=== PATIENT | female | born 1990 | race American Indian/Alaskan Native ===

== ENCOUNTER 2016-07-22 23:41 | Emergency (ER) | payer MEDICAID ==
[2016-07-22 23:51] VITALS: BP 114/74
--- NOTE | 2016-07-23 01:50 | Emergency Department Report ---
HPI - General Chief Complaint: Extremity Injury, Lower Time Seen by Provider: 07/23/16 01:44 - HPI HPI: 25-year-old -[place] female comes in for complaint of playing with her dog and injured her left pinky fingernail and has a bruise and scratch to her right lower leg. Patient reports that this is her animal. Patient reports that the dog has all his vaccines up-to-date. She denies any nausea vomiting no fever no chills she does report that her right lower leg graham area is swollen a little bit with a scratch. Patient reports she has a past medical history of mood swings and she is on Zoloft. ED Past Medical Hx - Past Medical History Previous Medical History?: No - Surgical History Past Surgical History?: No - Social History Smoking Status: Never Smoker Substance Use Type: None ED Review of Systems ROS: Stated complaint: LT HAND FIFTH FINGER INJURY/RT LEG PAIN Other details as noted in HPI Constitutional: denies: chills, fever Eyes: denies: eye pain, eye discharge, vision change ENT: denies: ear pain, throat pain Skin: change in color (bruise with swelling on her right lower leg graham), change in hair/nails (left pinky nail is hanging off these to be taken off), other (scratch) Physical Exam - Physical Exam Vital Signs: Vital Signs 07/22/16 23:48 Temperature 99.2 F Pulse Rate 81 Respiratory 20 Rate Blood Pressure 114/74 [Right] O2 Sat by Pulse 98 Oximetry ED Course Vital Signs 07/22/16 23:48 Temperature 99.2 F Pulse Rate 81 Respiratory 20 Rate Blood Pressure 114/74 [Right] O2 Sat by Pulse 98 Oximetry ED Medical Decision Making - Medical Decision Making Patient evaluated by this provider fast track. I was able to remove the nail by cutting. Scratch to her right lower graham was cleaned with Betadine normal saline and gauze with tape placed on. Discussed with patient that she needs to keep it clean and dry look for any signs of infection such as purulent discharge redness around the area. Critical care attestation.: If time is entered above; I have spent that time in minutes in the direct care of this critically ill patient, excluding procedure time. ED Disposition Clinical Impression: Scratch of lower leg, Hangnail Disposition: DISCHARGED TO HOME OR SELFCARE Is pt being admited?: No Does the pt Need Aspirin: No Condition: Stable Instructions: Abrasion (ED) Additional Instructions: Recommend you to soak left pinky and warm salt water. At least once a day for the next 2-3 days. Also recommend. Keep your right lower leg abrasion clean and dry. Referrals: PRIMARY CARE, [Primary Care Provider] - 3-5 Days VERONIKA MILLAN MD [Staff Physician] - 3-5 Days
== END 2016-07-23 02:15 | disposition home or self-care (01) ==
LOC: ED 23:41
DX: S60.417A Abrasion of left little finger, initial encounter (principal); X58.XXXA Exposure to other specified factors, initial encounter; Y93.89 Activity, other specified; Y99.9 Unspecified external cause status; Y92.89 Other specified places as the place of occurrence of the external cause
CPT/HCPCS: 99282

== ENCOUNTER 2017-11-22 12:01 | Emergency (ER) | payer SELFPAY ==
[2017-11-22 12:11] VITALS: BP 111/59
--- NOTE | 2017-11-22 16:45 | Emergency Department Report ---
Upper Extremity - HPI Chief Complaint: Wound/Laceration Stated Complaint: RT HAND INJURY Time Seen by Provider: 11/22/17 16:38 Upper Extremity: Right Hand (laceration and pain after punching a door) Occurred When: Today Mechanism: Other (patient reported that she punched a door) Severity: moderate (6/10 and achy, throbbing) Symptoms: Yes Pain with Movement (right hand), Yes Limited Range of Movement ( pain with opening and closing right hand), Yes Swelling (right hand), Yes Laceration or Abrasion (right hand), No Deformity, No Numbness, No Weakness, No Bruising/Ecchymosis Other History: This 27-year-old female here report that she punched a door this morning and she is having right hand pain at her for fourth and fifth finger. She reports swelling and also reports that she has a cut and a bruise in her right hand. Tetanus vaccine is up-to-date. Pain is 6/10 achy and throbbing worse with movement better with rest. Denies taking any medication. She says she put a dressing over site was bleeding and came to hospital soon after. ED Review of Systems ROS: Stated complaint: RT HAND INJURY Other details as noted in HPI Constitutional: denies: chills, fever Respiratory: denies: cough, shortness of breath, SOB with exertion, wheezing Cardiovascular: denies: chest pain, palpitations, edema, syncope Gastrointestinal: denies: nausea, vomiting Musculoskeletal: joint swelling, arthralgia. denies: back pain, myalgia Skin: rash, other (laceration and bruising to right hand). denies: lesions Neurological: denies: headache, weakness, numbness, paresthesias, abnormal gait , vertigo ED Past Medical Hx - Past Medical History Previous Medical History?: No - Surgical History Past Surgical History?: No - Family History Family history: no significant - Social History Smoking Status: Current Every Day Smoker Substance Use Type: Alcohol - Medications Home Medications: Home Medications Medication Instructions Recorded Confirmed Last Taken Type Ibuprofen [Motrin] 600 mg PO Q8H PRN #12 tablet 11/22/17 Unknown Rx cephALEXin [Keflex] 500 mg PO Q8HR 7 Days #21 cap 11/22/17 Unknown Rx Upper Extremity Exam - Exam General: Vital signs noted. No distress. Alert and acting appropriately. This is a 27-year-old female well-nourished well-developed in no acute distress. Head and Torso: No HEENT Abnormality, No Neck Tenderness, No Chest/Lungs Abnormality, No Abdominal Tenderness, No Back Tenderness Shoulder Exam: Yes Normal Range of Motion in Shoulder, No Shoulder Tenderness, No Clavicle Tenderness, No Shoulder Deformity, No AC Joint Tenderness Arm Exam: No Arm/Humerus Tenderness, No Arm Deformity Elbow: Yes Normal Range of Motion in Elbow, No Elbow Tenderness, No Elbow Deformity Forearm: No Forearm Tenderness, No Forearm Deformity, No Pain with Pronation, No Pain with Supination Wrist: Yes Normal ROM in Wrist, No Wrist Tenderness, No Wrist Deformity, No Snuffbox Tenderness, No Pain with Axial Thumb Compression Hand: Yes Hand Tenderness (between third, fourth and fifth metacarpal bone area. ), Yes Digit Tenderness (proximal fourth phalanx, dorsum), Yes Normal ROM in Digit(s) (full range of motion in all extremities but patient with pain with movement of right hand especially fourth phalanx.), Yes Digit(s) Deformity ( proximal fourth phalanx with mild swelling), No Hand Deformity, No Tendon Dysfunction CMS Exam: Yes Broken Skin (2 cm laceration, linear, superficial between third and fourth metacarpal bone, dorsum of right hand), Yes Normal Distal Pulses (, cyanosis or edema. +2 pulses all extremities and no neurovascular compromise), Yes Normal Capillary Refill (less than 2 seconds), Yes Normal Distal Sensation ( patient with good color, sensation, movement and temperature to extremities both hand.) Hand L/R Back: 1 - Patient with 2 cm, linear, superficial laceration to right dorsum of hand. Minimal bleeding. Tendon palpates without any signs of infection. ED Course Vital Signs 11/22/17 12:07 Temperature 98.2 F Pulse Rate 66 Respiratory 18 Rate Blood Pressure 111/59 O2 Sat by Pulse 99 Oximetry - Reevaluation(s) Reevaluation #1: 11/22/17 18:37 Patient received Keflex 500 mg to prevent infection, ibuprofen 800 mg by mouth for pain and posterior 0.5 mL injection to update tetanus. No adverse reaction. - Laceration /Wound Repair Right Dorsal Hand Wound Location: upper extremity (right hand between third and fourth metacarpal bone area.) Wound's Depth, Shape: superficial, linear Wound Explored: no foreign body removed Irrigated w/ Saline (ccs): 100 Betadine Prep?: Yes Anesthesia: 1% Lidocaine Volume Anesthetic (ccs): 2 Wound Debrided: moderate Wound Repaired With: sutures Suture Size/Type: 4:0 (Ethilon) Number of Sutures: 5 Layer Closure?: No Sterile Dressing Applied?: Yes - Orthopedic Splinting/Casting Injury #1 Side: right Upper Extremity Injury Location: finger Upper Extremity Immobilizer: aluminum form splint Additional Comments: Patient with good color, sensation and movement in temperature to fingers of right hand status post metal finger splint placed. ED Medical Decision Making - Radiology Data Radiology results: report reviewed Findings [facility] [address] [place] [address] XRay Report Signed Patient: MARGUERITE MARY MR#: [id number] : 1990 Acct:[id number] Age/Sex: 27 / F ADM Date: 11/22/17 Loc: ED Attending Dr: Ordering Physician: DONTRELL CASTILLO Date of Service: 11/22/17 Procedure(s): XR hand 3+V RT Accession Number(s): [id number] cc: DONTRELL CASTILLO Fluoro Time In Minutes: FINAL REPORT EXAM: XR HAND 3+V RT HISTORY: punched hard object with rt hand now with pain TECHNIQUE: Frontal, lateral, oblique views right hand Comparison: None FINDINGS: There is the appearance of a minimally displaced fracture of the proximal metaphysis of the proximal phalanx of the 4th finger. The joint spaces appear to be maintained. The soft tissues are unremarkable IMPRESSION: 1. Appearance of a minimally displaced fracture of the proximal metaphysis of the proximal phalanx of the 4th finger. Transcribed By: ED Dictated By: CHRISTIAN CARDENAS MD Electronically Authenticated By: CHRISTIAN CARDENAS MD Signed Date/Time: 11/22/171704 DD/ 04 TD/TT: 11/22/171704 - Medical Decision Making Hit a wooden door today and injured her right hand and now she is having pain swelling with laceration to the site. She came to the hospital for evaluation and treatment. Patient was seen by myself and physical findings forward superficial, linear 2 cm laceration to right dorsum of hand between third and fourth metacarpal bone area. She has tenderness to palpate proximal phalanx of the fourth finger with mild swelling. She has no restriction in movement of her fingers and radial ulnar pulses are 2+. She is able to open and close her hands without any difficulties. Please see procedure note for laceration repair and also for splint placement. X-ray of right hand showed minimally displaced fracture of right fourth proximal phalanx. Diagnosis, x-ray and treatment were explained to patient voiced understanding. Patient discharged home in stable condition. Vital signs the symptoms is febrile and pains controlled. She got Motrin 800 mg when necessary emergency room for pain, Keflex 5 mg to prevent infection in booster 0.5 mL to update tetanus. Discharged from ED with prescription for Keflex and Motrin and to return in 7-10 days to have stitches removed. I also instructed her that she can return sooner if develops signs of infection. - Differential Diagnosis FX VS dislocation, sprain, strain, musculoskeletal pain Critical care attestation.: If time is entered above; I have spent that time in minutes in the direct care of this critically ill patient, excluding procedure time. ED Disposition Clinical Impression: Fracture of phalanx, proximal, right hand Qualifiers: Encounter type: initial encounter Fracture type: closed Qualified Code(s): S62.619A - Displaced fracture of proximal phalanx of unspecified finger, initial encounter for closed fracture Closed right hand fracture Qualifiers: Encounter type: initial encounter Qualified Code(s): S62.91XA - Unspecified fracture of right wrist and hand, initial encounter for closed fracture Laceration of right hand without foreign body Qualifiers: Encounter type: initial encounter Qualified Code(s): S61.411A - Laceration without foreign body of right hand, initial encounter Disposition: DC-01 TO HOME OR SELFCARE Is pt being admited?: No Does the pt Need Aspirin: No Condition: Stable Instructions: Finger Fracture (ED), Splint Care (ED), RICE Therapy (ED), Contusion in Adults (ED) Additional Instructions: keep affected area clean and dry Return to emergency room or urgent care for removal of stitches Keep affected area clean and dry See instructions on rice therapy Take antibiotic as prescribed Referrals: PRIMARY CAREMD [Primary Care Provider] - 2-3 Days RAMIRO TO MD [Staff Physician] - 3-5 Days Forms: Work/School Release Form(ED), Accompanied Note
--- NOTE | 2017-11-22 17:06 | XRay Report ---
FINAL REPORT EXAM: XR HAND 3+V RT HISTORY: punched hard object with rt hand now with pain TECHNIQUE: Frontal, lateral, oblique views right hand Comparison: None FINDINGS: There is the appearance of a minimally displaced fracture of the proximal metaphysis of the proximal phalanx of the 4th finger. The joint spaces appear to be maintained. The soft tissues are unremarkable IMPRESSION: 1. Appearance of a minimally displaced fracture of the proximal metaphysis of the proximal phalanx of the 4th finger.
[2017-11-22] MEDS ORDERED: KEFLEX PO ONE (17:39)
[2017-11-22] MEDS ORDERED: XYLOCAINE 1% MPF 5 mL INFILTRATI ONE (17:39)
[2017-11-22] MEDS ORDERED: BOOSTRIX IM ONE (17:39)
[2017-11-22] MEDS ORDERED: MOTRIN PO ONE (17:39)
[2017-11-22] MEDS ORDERED: NACL 0.9% 500 ML IR ONE (17:54)
== END 2017-11-22 19:01 | disposition home or self-care (01) ==
LOC: ED 12:01
DX: S62.91XA Unspecified fracture of right hand, initial encounter for closed fracture (principal); S62.619A Displaced fracture of proximal phalanx of unspecified finger, initial encounter for closed fracture; S61.411A Laceration without foreign body of right hand, initial encounter; F17.200 Nicotine dependence, unspecified, uncomplicated; W22.8XXA Striking against or struck by other objects, initial encounter; Y93.89 Activity, other specified; Y99.8 Other external cause status; Y92.89 Other specified places as the place of occurrence of the external cause
CPT/HCPCS: 90471; 90715; 99283